=== PATIENT | male | born 2000 | race Caucasian/White ===

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

== ENCOUNTER 2022-05-29 16:10 | Emergency (ER) | payer SELFPAY ==
[2022-05-29 16:17] VITALS: BP 143/81; PULSE 91; RESP 16; TEMP 36.7; O2SAT 98
--- NOTE | 2022-05-29 17:12 | XRR_ITS ---
PROCEDURE INFORMATION: Exam: XR Left Hand Exam date and time: 05/29/2022 5:26 PM Age: 21 years old Clinical indication: Injury or trauma; Other: Crushing; Left; Ring finger; Additional info: Injury, crush, ring finger, hand smashed between a log today TECHNIQUE: Imaging protocol: Radiologic exam of the Left hand. Views: 3 or more views. COMPARISON: No relevant prior studies available. FINDINGS: Bones/joints: Fourth metacarpal distal phalangeal fracture involving the mid diaphysis with mild displacement. Soft tissues: Normal. XR/XR hand LT min 3V* [id number] IMPRESSION: Fourth metacarpal distal phalangeal fracture involving the mid diaphysis with mild displacement.
[2022-05-29 17:15] VITALS: BP 133/78; PULSE 51; RESP 18; TEMP 36.6
--- NOTE | 2022-05-29 17:27 | ED_ITS ---
HPI - Wound/Laceration General: Chief Complaint: Wound/Laceration Stated Complaint: left hand injury, fingers smashed Time Seen by Provider: 05/29/22 17:11 History of Present Illness: Patient comes in today for injury to the left hand. Incident occurred this afternoon when patient was working outside when he dropped a log onto his hand. Patient has an abrasion to the ring finger of the left hand proximally, crush injury is noted to the distal finger with partial avulsion of the nail, and a superficial flap laceration to the volar pinky. Patient's tetanus is up-to-date. Patient appears in mild to moderate pain. Patient appears nontoxic. Review of Systems Musc: Reports: extremity pain and extremity swelling Skin/Breast: Reports: new lesions Physical Exam Const: COMMON NORMALS: alert HENMT: COMMON NORMALS: normocephalic HEAD & SCALP: normocephalic Neck/C-Spine: COMMON NORMALS: full ROM Resp: COMMON NORMALS: normal respiratory effort Cardio: COMMON NORMALS: regular rate RATE: regular rate Extremity: LEFT UPPER EXTREMITY: Yes hand & digits (Partial nail avulsion fourth digit, crush injury, abrasions ) Left hand and digits: Yes inspection, Yes palpation and Yes ROM Neuro: SENSORIUM/ORIENTATION: Yes alert Skin: TRAUMA: abrasion (Proximal fourth digit,) and laceration (Flap volar proximal middle finger left hand) NAILS: other (Crush injury with nail avulsion distal fourth digit left hand) Procedures Nerve Block Nerve Block 1: Amount of anesthesia used (mL): 2 Side: left Nerve Blocks: digital Procedure Successful: Yes (Partial) Patient Tolerated Procedure: well Complications: inadequate anesthesia Course Vital Signs: Vital signs: Vital Signs Temperature 97.9 F 05/29/22 17:15 Pulse Rate 51 L 05/29/22 18:14 Respiratory Rate 18 05/29/22 18:14 Blood Pressure 133/78 05/29/22 18:14 Pulse Oximetry 98 05/29/22 18:14 Oxygen Delivery Me thod 05/29/22 17:15 MDM - Wound/Laceration Medical Decision Making 21-year-old male patient comes in with partial nail avulsion of the left fourth digit, and crush injury to the left hand. Patient has normal range of motion of the digits, he has significant contusion with a nail displacement from the bed. There is also a superficial flap laceration to the palmar aspect of the proximal little finger on the left hand. Differential diagnosis includes fracture, foreign body, dislocation, nail avulsion. Wound was irrigated and nail was placed back into the bed under a digital block. Patient tolerated fair. Patient was given 1 g of cefazolin due to open fracture of the distal tuft of the left ring finger. Reviewed exam and treatment with Dr. Frank who agreed to plan. Patient will follow-up in orthopedics office for further treatment and evaluation. Lab Data Radiology Impressions Hand X-Ray 05/29/22 17:12 IMPRESSION: Fourth metacarpal distal phalangeal fracture involving the mid diaphysis with mild displacement. Discharge Plan Discharge Patient Disposition: Home Clinical Impression: Avulsion of nail of left ring finger, Fracture of distal phalanx of finger of left hand Finger injury Qualifiers: Encounter type: initial encounter Laterality: left Qualified Code(s): S69.92XA - Unspecified injury of left wrist, hand and finger(s), initial encounter Condition: Stable Prescriptions: New amoxicillin-pot clavulanate 875-125 mg tablet 1 tab PO BID Qty: 14 0RF hydrocodone-acetaminophen 5-325 mg tablet 1 tab PO Q6H PRN (Reason: pain (scale score 7-10)) Qty: 10 0RF Discharge Orders: Discharge ED (Routine); Ordered 05/29/22 Ordered By: Matty Bianchi Discharge Diet: Usual diet Discharge Activity: Increase activity as tolerated Patient Instructions: Finger Laceration (ED) Activity Restrictions/Additional Instructions: Keep wound clean and dry. Take antibiotic daily to times for the next 7 days. Use acetaminophen and ibuprofen to control pain. Use hydrocodone for severe pain. Follow-up with primary care as needed. Case management will contact you regarding follow-up appointment with the orthopedic surgeon. Coding Level of Care Code ED Surplus Property Disposal Agent for Samantha Dillon
[2022-05-29] MEDS: ceFAZolin 1,000 mg SDV 1000 MG IM (18:03)
[2022-05-29] MEDS: HYDROcodone-acetaminophen 10-325 mg Tablet 1 TAB PO (18:03)
[2022-05-29 18:14] VITALS: BP 133/78; PULSE 51; RESP 18; O2SAT 98
== END 2022-05-29 18:14 | disposition home or self-care (01) ==
PROVIDERS: Emergency Provider Nurse Practitioner Family
DX: S61.305A Unspecified open wound of left ring finger with damage to nail, initial encounter (principal); S62.395A Other fracture of fourth metacarpal bone, left hand, initial encounter for closed fracture; W20.8XXA Other cause of strike by thrown, projected or falling object, initial encounter
CPT/HCPCS: 64450; 73130; 96372; 99284; J0690